=== PATIENT | female | born 1955 | race Two or more races ===

== ENCOUNTER 2023-05-26 12:24 | Emergency (ER) | payer MEDICARE ==
[~2023-05-26] VITALS: Ht 160 cm; Wt 75.0 kg
[~2023-05-26 12:24] MED LIST: ALBU2.5V2 NEB; ALBU8.5H8 IH; BUDE10.2 IH; CITA-144 PO; OMEP-99 PO; PRED-554 PO
[2023-05-26 12:42] LABS: COVID AG,FIA SOURCE NASAL SWAB
[2023-05-26 13:07] LABS: BASOPHILS % (AUTO) 0.8 % (0.0-2.0); EOSINOPHILS % (AUTO) 4.9 % (1.0-6.0); HEMATOCRIT 39.6 % (36-46); HEMOGLOBIN 13.3 g/dL (12.0-16.0); LYMPHOCYTES # (AUTO) 0.5 K/uL (1.0-4.8); LYMPHOCYTES % (AUTO) 8.2 % (22.0-44.0); MEAN CORPUSCULAR HEMOGLOBIN 29.4 pg (26.0-34.0); MEAN CORPUSCULAR HGB CONC 33.7 G/dL (31.0-37.0); MEAN CORPUSCULAR VOLUME 87 fL (80-100); MONOCYTES # (AUTO) 0.5 K/uL (0.1-1.0); MONOCYTES % (AUTO) 8.3 % (2.0-9.0); NEUTROPHILS # (AUTO) 4.9 K/uL (1.8-7.7); NEUTROPHILS % (AUTO) 77.8 % (40.0-70.0); PLATELET COUNT (AUTO) 275 K/uL (150-450); RED BLOOD CELL COUNT(AUTO) 4.54 MIL/uL (4.00-5.20); RED CELL DISTRIBUTION WIDTH 14.2 % (11.5-14.5); WHITE BLOOD COUNT (AUTO) 6.3 K/uL (4.5-11.0)
[2023-05-26 13:07] LABS: SARS-COV2 (COVID) ANTIGEN,FIA Negative (Negative)
[2023-05-26 13:09] LABS: INFLUENZA TYPE B NEGATIVE FOR TYPE B (NEGATIVE)
[2023-05-26 13:17] LABS: ANION GAP 9 mmol/L (8-16); CALCIUM, TOTAL 9.6 mg/dL (8.8-10.5); CARBON DIOXIDE 29 mmol/L (22-29); CHLORIDE 98 mmol/L (98-107); CREATININE 0.99 mg/dL (0.60-1.30); GLOMERULAR FILTR. RATE CALC 56 mL/min (>60); GLUCOSE,RANDOM 103 mg/dL (70-110); POTASSIUM 4.2 mmol/L (3.5-5.1); SODIUM SERUM 136 mmol/L (136-145); UREA NITROGEN, BLOOD 14 mg/dL (7-18)
[2023-05-26 13:24] LABS: ALANINE AMINOTRANSFERASE 23 U/L (12-78); ALBUMIN 4.2 g/dL (3.4-5.0); ALKALINE PHOSPHATASE 83 U/L (46-116); ASPARTATE AMINOTRANSFERASE 19 U/L (15-37); BILIRUBIN,TOTAL 0.4 mg/dL (0.1-1.0); CREATINE KINASE, TOTAL ONLY 42 U/L (26-192); TOTAL PROTEIN, SERUM 8.4 g/dL (6.4-8.2)
[2023-05-26 13:25] LABS: TROPONIN I-HIGH SENSITIVITY 7 ng/L (<51)
[2023-05-26 13:31] LABS: B-TYPE NATRIURETIC PEPTIDE < 5 pg/mL (0-100)
[2023-05-26 13:33] LABS: INFLUENZA TYPE A POSITIVE FOR TYPE A (NEGATIVE)
[2023-05-26 15:02] VITALS: BP 139/74; PULSE 101; RESP 18; TEMP 98.6
[2023-05-26] MEDS ORDERED: GUAIFDM PO (15:19)
[2023-05-26] MEDS ORDERED: ACET-66 PO (15:19)
[2023-05-26] MEDS ORDERED: PRED-554 PO (15:19)
== END 2023-05-26 15:46 | disposition home or self-care (01) ==
LOC: EMS 12:36
DX: J10.1 Influenza due to other identified influenza virus with other respiratory manifestations (principal); J45.901 Unspecified asthma with (acute) exacerbation; R07.89 Other chest pain; F32.A Depression, unspecified; Z98.51 Tubal ligation status; Z88.2 Allergy status to sulfonamides; Z88.8 Allergy status to other drugs, medicaments and biological substances; Z20.822 Contact with and (suspected) exposure to COVID-19
CPT/HCPCS: 71046; 80053; 82550; 83880; 84484; 85025; 87804; 93005; 99285; 36415-L1; 36415-TC

== ENCOUNTER 2023-06-09 13:28 | Emergency (ER) | payer MEDICARE ==
[~2023-06-09] VITALS: Ht 165.1 cm; Wt 72.7 kg
[~2023-06-09 13:28] MED LIST changes: +ACET-66 PO; +GUAIFDM PO
[2023-06-09 13:34] VITALS: BP 154/72; PULSE 85; RESP 16; TEMP 98.7
[2023-06-09] MEDS ORDERED: DOXY-354 PO (13:35)
== END 2023-06-09 15:28 | disposition left against medical advice (07) ==
LOC: EMS 13:28
DX: S61.217A Laceration without foreign body of left little finger without damage to nail, initial encounter (principal); Z53.21 Procedure and treatment not carried out due to patient leaving prior to being seen by health care provider; W26.8XXA Contact with other sharp object(s), not elsewhere classified, initial encounter; Y93.89 Activity, other specified; Y92.89 Other specified places as the place of occurrence of the external cause; Y99.8 Other external cause status
CPT/HCPCS: 99281; Z7502

== ENCOUNTER 2024-05-15 17:22 | Emergency (ER) | payer MEDICARE ==
[~2024-05-15] VITALS: Ht 165.1 cm; Wt 78.0 kg
[~2024-05-15 17:22] MED LIST changes: +ALBU18HF12 IH; -ALBU2.5V2 NEB; -ALBU8.5H8 IH; +AMOX1TAB15 PO; +BISA10SU11 PR; -BUDE10.2 IH; +DOCU-385 PO; +FLUT1BLS15 IH; -GUAIFDM PO; -PRED-554 PO
[2024-05-15 18:08] VITALS: BP 148/71; PULSE 70; RESP 18; TEMP 98.4; O2SAT 97
== END 2024-05-15 19:30 | disposition left against medical advice (07) ==
LOC: EMS 17:22
DX: R10.13 Epigastric pain (principal); Z53.21 Procedure and treatment not carried out due to patient leaving prior to being seen by health care provider
CPT/HCPCS: 93005